=== PATIENT | male | born 1945 | race Two or more races ===

== ENCOUNTER 2018-04-23 09:59 | Day surgery (SDC) | payer MEDICARE, OTHER ==
[~2018-04-23] VITALS: Ht 170.2 cm; Wt 70.3 kg
[2018-04-23] VITALS (9 sets, daily range): BP systolic 129–196; BP diastolic 61–89
[~2018-04-23 09:59] MED LIST: ATORVASTATIN CA20 MG ORAL; CEFTAZIDIME SCONJUNC SCH; CLOPIDOGREL75 MG ORAL; DEXAMETHASONE SCONJUNC SCH; METOPROLOL SUCC50 MG ORAL; NOVOLIN R100 UNIT/1 SUBQ; OMEPRAZOLE40 M1 ORAL; RENA-VITE RX T1 EAC1 PO; VANCOMYCIN SCONJUNC SCH; Vancomycin Intravitreal Inj IVITRE SCH
[2018-04-23] MEDS ORDERED: EPINEPHrine 1mg/1ml Amp ONE (10:04)
[2018-04-23] MEDS ORDERED: Lidocaine 4% Amp ONE (10:04)
[2018-04-23] MEDS ORDERED: Dexamethasone 4mg/ml vial ONE (10:05)
[2018-04-23] MEDS ORDERED: BSS 15ml BTL ONE (10:05)
[2018-04-23] MEDS ORDERED: Povidone-Iodine 5% opth solution ONE (10:05)
[2018-04-23] MEDS ORDERED: Tetracaine 0.5% Opth 4ml Soln ONE (10:05)
[2018-04-23] MEDS ORDERED: BSS 500ml btl ONE (10:05)
[2018-04-23] MEDS ORDERED: Bupivacaine 0.75% 30ml vial INJ ONE (10:06)
[2018-04-23] MEDS ORDERED: Vigamox Opth Soln 3ml ONE (10:52)
[2018-04-23] MEDS ORDERED: Phenylephrine 2.5% Op 2ml Soln ONE (10:52)
[2018-04-23] MEDS ORDERED: Cyclopentolate 1% Opth Sol 2ml ONE (10:52)
[2018-04-23] MEDS ORDERED: Tropicamide 1% Opth 15ml Soln ONE (10:52)
[2018-04-23] MEDS: Cyclopentolate 1% Opth Sol 2ml RIGHT EYE SCH ×3 (10:55→11:20)
[2018-04-23] MEDS: Phenylephrine 2.5% Op 2ml Soln RIGHT EYE SCH ×3 (10:55→11:20)
[2018-04-23] MEDS: Vigamox Opth Soln 3ml RIGHT EYE SCH ×3 (10:55→11:20)
[2018-04-23] MEDS: Tropicamide 1% Opth 15ml Soln RIGHT EYE SCH ×3 (10:55→11:20)
[2018-04-23 11:22] LABS: BASOPHILS % (AUTO) 0.7 % (0.0-2.0); EOSINOPHILS % (AUTO) 0.4 % (0.0-3.0); HEMOGLOBIN 11.6 G/DL (14.2-18.0); LYMPHOCYTES % (AUTO) 8.4 % (20.0-45.0); MEAN CORPUSCULAR VOLUME 93 FL (80-99); NEUTROPHILS % (AUTO) 83.5 % (45.0-75.0); PLATELET COUNT 195 K/UL (150-450); RED BLOOD COUNT 3.66 M/UL (4.70-6.10); RED CELL DISTRIBUTION WIDTH 12.3 % (11.6-14.8); WHITE BLOOD COUNT 9.1 K/UL (4.8-10.8)
[2018-04-23 11:33] LABS: ANION GAP 11 mmol/L (5-15); BLOOD UREA NITROGEN 72 mg/dL (7-18); CALCIUM 7.7 MG/DL (8.5-10.1); CARBON DIOXIDE 27 MMOL/L (21-32); CHLORIDE 91 MMOL/L (98-107); CREATININE 5.9 MG/DL (0.55-1.30); POTASSIUM 4.2 MMOL/L (3.5-5.1); SODIUM 129 MMOL/L (136-145)
[2018-04-23] MEDS ORDERED: Indocyanine Green 25mg Inj INJ ONE (12:00)
[2018-04-23] MEDS ORDERED: Lidocaine 1% MPF 10mg/ml 5ml ONE (12:06)
[2018-04-23] MEDS ORDERED: Propofol 200mg/20ml IV ONE (12:06)
[2018-04-23] MEDS ORDERED: Midazolam 2mg/2ml Inj ONE (12:06)
[2018-04-23] MEDS ORDERED: fentaNYL 100 mcg/2 mL IV ONE (12:06)
--- NOTE | 2018-04-23 12:16 | Pre-Procedure Note/Attestation ---
Pre-Procedure Note/Attestation Complete Prior to Procedure Planned Procedure: right Procedure Narrative: pars plana vitrectomy Indications for Procedure Pre-Operative Diagnosis: endophthalmitis right eye Attestation I attest that I discussed the nature of the procedure; its benefits; risks and complications; and alternatives (and the risks and benefits of such alternatives ), prior to the procedure, with the patient (or the patient's legal mechanical service representative). I attest that, if there was a reasonable possibility of needing a blood transfusion, the patient (or the patient's legal mechanical service representative) was given the [facility] standardized written summary, pursuant to the Tyson Caitlin Blood Safety Act ([place] Health and Safety Code # 1645, as amended). I attest that I re-evaluated the patient just prior to the surgery and that there has been no change in the patient's H&P, except as documented below: Wicho Malcolm MD Apr 23, 2018 12:16
--- NOTE | 2018-04-23 12:18 | Anethesia Preoperative Eval ---
Anesthesia Pre-op PMH/ROS General Date of Evaluation: Apr 23, 2018 Time of Evaluation: 12:15 Anesthesiologist: Zahraa Cardozo CRNA ASA Score: ASA 3 Mallampati Score Class I : Soft palate, uvula, fauces, pillars visible Class II: Soft palate, uvula, fauces visible Class III: Soft palate, base of uvula visible Class IV: Only hard plate visible Mallampati Classification: Class II Surgeon: Yun Diagnosis: RIGHT eye endoptomitis Surgical Procedure: RIGHT eye vitrectomy with injection of antibiotics Anesthesia History: none Family History: no anesthesia problems Allergies: Coded Allergies: No Known Allergies (Unverified , 04/22/18) Medications: see eMAR Patient NPO?: Yes NPO Date: Apr 23, 2018 NPO Time: 00:00 Past Medical History Cardiovascular: Reports: HTN, CAD Pulmonary: Denies: asthma, COPD, VIRI, other Gastrointestinal/Genitourinary: Reports: GERD; Denies: CRI, ESRD, other Neurologic/Psychiatric: Denies: dementia, CVA, depression/anxiety, TIA, other Endocrine: Reports: DM, other - dialysis dependent HEENT: Reports: cataract (L), cataract (R); Denies: glaucoma, ASSINIBOINE AND [place] (L), ASSINIBOINE AND [place] (R), other Hematology/Immune: Reports: other - peripheral vascular disease; Denies: anemia, DVT, bleeding disorder Musculoskeletal/Integumentary: Denies: OA, RA, DJD, DDD, edema, other PMH Narrative: as above PSxH Narrative: AV fistula, RIGHT BKA, cataract extraction Anesthesia Pre-op Phys. Exam Physician Exam Last Vital Signs Date Time Temp Pulse Resp B/P (MAP) Pulse Ox O2 Delivery O2 Flow Rate FiO2 04/23/18 11:25 160/89 04/23/18 11:06 Room Air 04/23/18 11:03 98.0 67 20 97 Constitutional: NAD Neurologic: CN 2-12 intact Cardiovascular: RRR Respiratory: CTA Gastrointestinal: S/NT/ND Airway Exam Mallampati Score: Class II MO: full Neck: no limitations TMD: > 3FB Teeth: missing, broken Dentures: upper, lower Anesthesia Pre-op A/P Labs Hematology Test 04/23/18 11:10 White Blood Count 9.1 K/UL (4.8-10.8) Red Blood Count 3.66 M/UL (4.70-6.10) L Hemoglobin 11.6 G/DL (14.2-18.0) L Hematocrit 34.0 % (42.0-52.0) L Mean Corpuscular Volume 93 FL (80-99) Mean Corpuscular Hemoglobin 31.6 PG (27.0-31.0) H Mean Corpuscular Hemoglobin Concent 34.0 G/DL (32.0-36.0) Red Cell Distribution Width 12.3 % (11.6-14.8) Platelet Count 195 K/UL (150-450) Mean Platelet Volume 6.7 FL (6.5-10.1) Neutrophils (%) (Auto) 83.5 % (45.0-75.0) H Lymphocytes (%) (Auto) 8.4 % (20.0-45.0) L Monocytes (%) (Auto) 7.0 % (1.0-10.0) Eosinophils (%) (Auto) 0.4 % (0.0-3.0) Basophils (%) (Auto) 0.7 % (0.0-2.0) Chemistry Test 04/23/18 11:10 Sodium Level 129 MMOL/L (136-145) L Potassium Level 4.2 MMOL/L (3.5-5.1) Chloride Level 91 MMOL/L (98-107) L Carbon Dioxide Level 27 MMOL/L (21-32) Anion Gap 11 mmol/L (5-15) Blood Urea Nitrogen 72 mg/dL (7-18) H Creatinine 5.9 MG/DL (0.55-1.30) H Estimat Glomerular Filtration Rate mL/min (>60) Glucose Level 143 MG/DL (74-106) H Calcium Level 7.7 MG/DL (8.5-10.1) L Accucheck 146 Studies Pre-op Studies: EKG - LEFT inferior infarct Risk Assessment & Plan Assessment: ASA 3; chart reviewed, ok to proceed Plan: MAC Pre-Antibiotics Given Within 1 Hr of Incision: Zahraa Edge CRNA Apr 23, 2018 12:18
[2018-04-23] MEDS ORDERED: Goniotaire 2.5% Opth Soln - 15ml ONE (12:44)
--- NOTE | 2018-04-23 13:33 | Immediate Post-Op Evaluation ---
Immediate Post-Op Evalulation Immediate Post-Op Evalulation Procedure: RIGHT eye pars plana vitrectomy with antibiotic injection Date of Evaluation: Apr 23, 2018 Time of Evaluation: 13:21 IV Fluids: 0.9 NS 100ml Blood Pressure Systolic: 152 Blood Pressure Diastolic: 64 Pulse Rate: 60 Respiratory Rate: 20 O2 Sat by Pulse Oximetry: 100 Temperature (Fahrenheit): 97.6 Pain Score (1-10): 0 Nausea: No Vomiting: No Complications none Patient Status: awake, reacts, patent Hydration Status: adequate Given Within 1 Hr of Incision: Zahraa Edge CRNA Apr 23, 2018 13:33
--- NOTE | 2018-04-23 13:34 | 48 Hour Post Anesthesia Eval ---
Post Anesthesia Evaluation Procedure: RIGHT eye pars plana vitrectomy with antibiotic injection Date of Evaluation: Apr 23, 2018 Time of Evaluation: 13:33 Blood Pressure Systolic: 148 0: 70 Pulse Rate: 59 Respiratory Rate: 20 Temperature (Fahrenheit): 97.6 O2 Sat by Pulse Oximetry: 100 Airway: patent Nausea: No Vomiting: No Pain Intensity: 0 Hydration Status: adequate Cardiopulmonary Status: stable Mental Status/LOC: patient returned to baseline Follow-up Care/Observations: per surgeon Post-Anesthesia Complications: none Follow-up care needed: ready to discharge Zahraa Cardozo CRNA Apr 23, 2018 13:34
--- NOTE | 2018-04-23 20:00 | Pre-op HX & Phy Repo 2 SIG ---
DATE OF ADMISSION: 04/23/2018 PRESURGICAL INTERNAL MEDICINE HISTORY AND PHYSICAL DATE OF EVALUATION: April 23, 2018. REASON FOR EVALUATION: I was asked by Dr. Wicho Malcolm to see this 72-year-old male, who is going for elective surgery on the right eye. The patient has endophthalmitis of right eye, MRSA. Please see full Ophthalmology History and Physical by Dr. Wicho Malcolm. The patient was evaluated. Chart was reviewed. The patient was seen in the outpatient procedure of [facility]. The daughter at bedside helped with translation from Togolese. The patient has history of insulin-dependent diabetes mellitus. The patient is on hemodialysis for the last year, last dialysis on April 20, 2018. The patient had a coronary stent placement five years ago and a femoral stent as well. He has history of COPD, emphysema, and GERD. No thyroid problem dialysis, anemia related to hypertension, diabetes, and renal failure. PAST SURGICAL HISTORY: Right below-knee amputation three years ago, right arm AV shunt for dialysis, coronary stent, and cataract surgery. FAMILY HISTORY: Mother with history of diabetes and arthritis. Father, unknown. ALLERGIES: Not known. MEDICATIONS: Atorvastatin, Plavix 75 mg, Novolin insulin, metoprolol, omeprazole, and vitamin B complex. HABITS: The patient smoked for more than 40 years and stopped five years ago. Alcohol denied and street drugs denied. PHYSICAL EXAMINATION: VITAL SIGNS: Blood pressure first measurement was 196/80, second at 11:30 was 160/89, temperature 98, pulse 67, respirations 20, and O2 saturation 97%. SKIN: Atopic dermatitis of left leg and also left foot heel. LYMPHATICS: Lymph nodes not enlarged. HEENT: Head normocephalic and atraumatic. Ears, clear, no discharge. Eyes, full description per Dr. Wicho Malcolm. Mouth, absence of the teeth except for bottom two teeth on the right. Mucosa, clear and moist. NECK: Supple. No jugular venous distention. Carotid artery +2. No thyroid gland enlargement or bulge. LUNGS: No rales or rhonchi. HEART: Sinus rhythm. No ectopy. No murmur. No S3, S4. ABDOMEN: Soft. No mass. No rebound. BMI is 24.2. EXTREMITIES: No edema. Right below-knee amputation. Dermatitis of the left bryant. GENITOURINARY TRACT: The patient is on hemodialysis. Last dialysis on April 20. The patient still urinates. NERVOUS SYSTEM: No tremor. No nystagmus. No asymmetry. DIAGNOSTIC DATA: ECG, sinus rhythm, 66 per minute, left axis deviation, inferior ND old. The patient's last p.o. intake at 11 p.m. yesterday. Fasting blood sugar this morning 146 mg/dL. IMPRESSION: 1. Endophthalmitis, right, MRSA. 2. Insulin-dependent diabetes mellitus, controlled. 3. End-stage renal disease, on hemodialysis. Last on April 20, 2018. 4. Hypertension. 5. History of ND by EKG with left axis deviation. 6. Dermatitis, left bryant and leg below-knee amputation. PLAN: Vitrectomy, 23G, injection of antibiotic to right eye per Dr. Wicho Malcolm. CONCLUSION: The patient has multiple medical problems which include hypertension, end-stage renal disease, and diabetes insulin-dependent. He also has GERD. The patient dialyzed three days ago. Laboratory pending. ECG, sinus rhythm. The patient did not eat or drink from 11 p.m. last night. The patient's condition optimized for surgery. Thank you very much, Dr. Malcolm, for privilege to participate in presurgical care of this interesting patient. Laura Ag M.D. DR: YANETH JOB#: [id number] CC:
--- NOTE | 2018-04-27 13:15 | Operative Note - Dictated ---
DATE OF OPERATION: 04/23/2018 PREOPERATIVE DIAGNOSIS: Endophthalmitis, right eye. POSTOPERATIVE DIAGNOSIS: Endophthalmitis, right eye. PROCEDURE: Pars plana vitrectomy with injection of antibiotics as well as suture of limbal wound, right eye. SURGEON: Wicho Malcolm M.D. CHIEF RADIATION THERAPIST: None. ANESTHESIA: Local (4% lidocaine and 0.75% bupivacaine via retrobulbar injection). COMPLICATIONS: None. PROCEDURE IN DETAIL: After informed consent was obtained, clearance from anesthesia, and identification by Dr. Malcolm, the patient was brought into the operating room, where he received his anesthetic injection and the right eye was prepped and draped in the usual sterile ophthalmic fashion. A wire lid speculum was placed in conjunctival fornices and a 3-port 23-gauge vitrectomy was created in this pseudophakic patient. Infusion cannula was placed inferotemporally with trocar, 3 mm posterior surgical limbus. The infusion was not turned on pending aspiration of the biopsy. The corneal wound appeared to be unstable with some infiltrate and 7-0 Vicryl sutures were placed into the wound to maintain its integrity. At this point, the ocutome was placed through a superonasal sclerotomy and using manual aspiration, cloudy fluid was removed from the vitreous cavity, which was sent for culture. At this point, the infusion was turned on. The anterior chamber was irrigated through using paracentesis port placed nasally with the trocar. Eventually, I was able to place the ocutome into the anterior chamber, which removed some of the purulent debris and cleared the visual axis. The ocutome was then placed into the posterior chamber where visual axis was clear posterior to the intraocular lens. As the view was poor through the cornea, vitrectomy was only limited to the central "core" area. At this point, the operation was concluded. A solution containing 2.25 mg of ceftazidime in 0.1 mL as well as 1 mg of vancomycin in 0.1 mL was injected into the eye. Although the culture was positive for methicillin-resistant Staph aureus, I did elect to use ceftazidime in event that there was another undiagnosed part of the infection. At this point, the trocar and cannulas were then removed and the wounds were noted to be watertight. Additional 8-0 nylon suture was placed to secure the corneal wound and the central Vicryl suture was removed. Then, wound knot was buried with the nylon suture and two of the Vicryl sutures were left intact to maintain the wound closure in the postoperative period. The operation was concluded. The patient left the operating room. Subconjunctival vancomycin, Decadron, and topical atropine drops were placed in the eye, which was patched and shielded, and the patient left the operating room in stable condition. Wicho Malcolm M.D. DR: Danis JOB#: [id number] CC:
--- NOTE | 2018-04-27 13:15 | Pre-op HX & Phy Repo 2 SIG ---
DATE OF SURGERY: Scheduled for 04/23/2018. HISTORY: The patient is a 72-year-old gentleman, who I initially saw on 04/19/2018 with a presumed endophthalmitis in the right eye, was treated with intravitreal vancomycin and that time, the culture was positive for methicillin-resistant Staph aureus. He was seen again on 04/20/2018 and 04/22/2018. He was noted to have persistent intraocular debris and poor vision. He is now being admitted. When he was seen on 04/22/2018, it was elevated to 44. He is now being admitted for pars plana vitrectomy to the right eye for endophthalmitis. PAST MEDICAL HISTORY: Remarkable for type 2 diabetes since 1970; end-stage renal disease, on dialysis; hypertension; hyperlipidemia; and coronary artery disease, status post myocardial infarction and stent placement. He also has a right [id number] amputation. MEDICATIONS: Include metoprolol, Lantus insulin, simvastatin as well topical famotidine, atropine, and gentamicin. ALLERGIES: He has no known drug allergies. OPHTHALMIC EXAMINATION: On examination, his visual acuity is light perception in the right eye and 20/60 in the left eye. Tension was 44 in the right eye and 19 in the left eye. The right eye demonstrated 2+ conjunctival injection. The cornea had moderate edema. There was small hypopyon present with 4+ shallowing in the anterior chamber. There was an infiltrate temporally in the stroma. Dilated vitreoretinal examination in the right eye demonstrates no view and in the left eye, the cornea is clear. The anterior chamber is quiet with distended PCIOL. Dilated vitreoretinal examination in the left eye demonstrated clear media with some vitreous opacities. Some [id number] hemorrhages in the posterior vitreous detachment is noted. IMPRESSION: Endophthalmitis, status post intravitreal injection with antibiotics. DISCUSSION: The culture was positive for methicillin-resistant Staph aureus that was sensitive to the vancomycin as already given. The eye is likely sterile at this time; however, in order to reduce the load of toxins from the bacteria and as well as to hasten the patient's recovery, vitrectomy is being is planned. Complications such as loss of vision, loss of eye, ptosis, glaucoma, strabismus, hemorrhage, and infection were discussed. He understands that. The overall prognosis part rather is poor due to the relevance of the affected organisms, but he agrees with surgery. Wicho Malcolm M.D. DR: TATE JOB#: [id number] CC:
== END 2018-04-23 14:40 | disposition home or self-care (01) ==
LOC: SUR 09:59
DX: H44.001 Unspecified purulent endophthalmitis, right eye (principal); B95.62 Methicillin resistant Staphylococcus aureus infection as the cause of diseases classified elsewhere; E11.9 Type 2 diabetes mellitus without complications; Z79.4 Long term (current) use of insulin; E11.22 Type 2 diabetes mellitus with diabetic chronic kidney disease; I12.0 Hypertensive chronic kidney disease with stage 5 chronic kidney disease or end stage renal disease; N18.6 End stage renal disease; Z99.2 Dependence on renal dialysis; J43.9 Emphysema, unspecified; K21.9 Gastro-esophageal reflux disease without esophagitis; D64.9 Anemia, unspecified; I25.2 Old myocardial infarction; Z87.891 Personal history of nicotine dependence; Z95.5 Presence of coronary angioplasty implant and graft; Z89.511 Acquired absence of right leg below knee
CPT/HCPCS: 36415; 66250; 67036; 80048; 82962; 85025; 87070; 87075; 87205; 93005; J0171; J0360; J1100; J2704; J3010; J3370; J3470; J3490; 94003; 94150; J2250